=== PATIENT | female | born 1975 | race Caucasian/White ===

== ENCOUNTER → 2016-12-18 | Outpatient (CLI) | payer OTHER ==
[~2016-12-18] MED LIST: PRENTAB26 PO
--- NOTE | 2016-12-18 14:00 | MAMMOGRAPHY REPORT ---
ULTRASOUND OF LEFT BREAST: 12/18/2016 CLINICAL HISTORY: 41 year-old woman presents for follow-up of a probably benign heterogeneous echoge nicity solid mass in the 3:00 left breast which could represent a benign fibroadenoma or fibroadenol ipoma. COMPARISON: Comparison is made to exams dated: 06/07/2016 mammogram and 06/19/2016 ultrasound - [facility]. FINDINGS: Real-time high-resolution sonographic evaluation was performed in the 3:00 left breast to reevaluate the heterogeneous echogenicity solid parallel circumscribed oval mass seen on prior ultr asound. In the 3:00 periareolar left breast, a heterogeneous hypoechoic solid parallel oval circums cribed mass is again identified. It measures 22.3 x 5.8 x 18.5 mm. This has not significantly huffman ged in size compared to the prior ultrasound and also correlates with a previously observed circumsc ribed mammographic mass. 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 Another targeted ultrasound is recommended in 6 months. Annual bilate ral mammography will be due at that time. IMPRESSION: ACR-BI-RADS CATEGORY 3: PROBABLY BENIGN - FOLLOW-UP RECOMMENDED 1. A benign-appearing parallel circumscribed heterogeneous hypoechoic solid mass in the 3:00 periar eolar left breast is unchanged in size comparing to the 06/19/2016 ultrasound. This most likely rep resents a benign fibroadenoma or fibroadenolipoma. However, another six-month follow-up targeted ul trasound is recommended to ensure longer stability. Annual bilateral mammography will also be due a t that time. These results and recommendations were discussed with the patient at the time of the exam. Karol Stokes M.D. ay/:12/18/2016 10:08:47 Cable Reeler: Dr. Karol Stokes, [facility] letter sent: Follow Up Recommended 3 BI-RADS Code: ACR-BI-RADS Category 3: Probably Benign
== END | disposition home or self-care (01) ==
LOC: C.MAMM 09:13
PROVIDERS: ATTEND Obstetrics & Gynecology
DX: N63 Unspecified lump in breast (principal)

== ENCOUNTER → 2017-06-05 | Outpatient (CLI) | payer OTHER | END | disposition home or self-care (01) | LOC: C.PAPS 14:24 | PROVIDERS: ATTEND Obstetrics & Gynecology | DX: Z12.4 Encounter for screening for malignant neoplasm of cervix (principal) ==

== ENCOUNTER → 2017-06-21 | Outpatient (CLI) | payer OTHER ==
--- NOTE | 2017-06-21 14:19 | MAMMOGRAPHY REPORT ---
BILATERAL DIGITAL DIAGNOSTIC MAMMOGRAM TOMOSYNTHESIS WITH CAD AND TARGETED LEFT ULTRASOUND: 06/21/2017 CLINICAL HISTORY: Short interval follow-up of left breast mass. The patient reports no current compl aints. TECHNIQUE: Breast tomosynthesis in addition to standard 2D mammography was performed. Current study was also evaluated with a Computer Aided Detection (CAD) system. Bilateral CC and MLO 2-D and tomosy nthesis images were obtained. COMPARISON: Comparison is made to exams dated: 12/18/2016 ultrasound, 06/19/2016 ultrasound, and 2015 mammogram - [facility]. BREAST COMPOSITION: The tissue of both breasts is heterogeneously dense, which may obscure small mas ses. FINDINGS: Again noted is an oval circumscribed benign-appearing 2.4 cm mass within the left upper ou ter quadrant, only well-seen on the tomosynthesis images. The mass is not significantly changed mammo graphically compared to the May 2016 exam. The remainder of both breasts are stable compared to the prior exam, without suspicious masses, calci fications, or areas of architectural distortion noted. Targeted ultrasound was performed of the area of the left breast mass. In the left breast at 3:00 pe riareolar region, again noted is a mixed echogenicity, predominantly hypoechoic, mass which measures 1.8 x 0.6 x 2.0 cm. When accounting for slight differences in measurement technique, the mass is sta ble dating back to the June 2016 exam. 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 This is well seen on the tomosynthesis images and can be followed yearly with annual screening mammography. IMPRESSION: ACR BI-RADS CATEGORY 2: BENIGN, TARGETED ULTRASOUND ACR BI-RADS CATEGORY 2: BENIGN Mixed echogenicity 2.0 cm mass in the left 3:00 breast is stable dating back to the May 2016 exam, and is considered benign given the benign morphology and stability, and likely represents a fibroade noma or fibroadenolipoma. This is well seen on the tomosynthesis images and can be monitored yearly with annual screening tomosynthesis mammograms. There is no mammographic or targeted sonographic evidence of malignancy. A 1 year screening mammogram is recommended. The patient has been verbally notified of the results. Approximately 10% of breast cancers are not detected with mammography. A negative mammographic report should not delay biopsy if a clinically suggestive mass is present. Dee Tolentino M.D. ah/:06/21/2017 11:50:11 Business Technology Professor: Estella BARROS(Yovany)(Tim), [facility] letter sent: Normal 1/2 BI-RADS Code: ACR BI-RADS Category 2: Benign Ultrasound BI-RADS: ACR BI-RADS Category 2: Benign
== END | disposition home or self-care (01) ==
LOC: C.MAMM 10:12
PROVIDERS: ATTEND Obstetrics & Gynecology
DX: N63 Unspecified lump in breast (principal)

== ENCOUNTER → 2018-02-22 | Outpatient (CLI) | payer BC ==
--- NOTE | 2018-02-22 16:31 | DIAGNOSTIC IMAGING REPORT ---
ULTRASOUND OF THE PELVIS CLINICAL HISTORY: Irregular menses. COMPARISON STUDY: No priors. TECHNIQUE: Real-time, grayscale, and color flow sonography of the pelvis is performed both transabdominally and endovaginally. Images are reviewed in the transverse and longitudinal planes. FINDINGS: Uterus: The retroverted uterus is normal in size and echotexture, measuring 8.5 x 5.3 x 6.3 cm. Small both incisions are incidentally noted in the cervix. Endometrium: The endometrium is normal in appearance, and the endometrial stripe is normal in thickness measuring up to 0.9 cm. Ovaries: The ovaries are normal in size and morphology. The right ovary measures 4.5 x 2.8 x 3.1 cm and the left ovary measures 2.6 x 2.0 x 2.1 cm. There are small bilateral ovarian follicles. Dominant follicle in the right ovary measures up to 2.1 cm. Normal Doppler waveforms are shown within both ovaries. Pelvis: There is trace free fluid in the cul-de-sac. No concerning adnexal lesion is seen. IMPRESSION: 1. No acute sonographic abnormality is identified in the pelvis. 2. There is trace and likely physiologic free fluid in the cul-de-sac. 3. A retroverted uterus is incidentally noted. Electronically signed by: Bayron Lombardo M.D. 02/22/2018 4:29 PM Dictated Date/Time: 02/22/2018 4:27 PM
== END | disposition home or self-care (01) ==
LOC: C.ULTR 15:13
PROVIDERS: ATTEND Family Medicine
DX: N92.6 Irregular menstruation, unspecified (principal); K58.9 Irritable bowel syndrome, unspecified; N85.4 Malposition of uterus